=== PATIENT | male | born 1995 | race Caucasian/White ===

== ENCOUNTER 2024-09-14 19:37 | Emergency (ER) | payer OTHER, SELFPAY ==
[2024-09-14 19:51] VITALS: BP 151/90
[2024-09-14 20:10] LABS: % Basophils 0.5 % (0-2); % Eosinophils 2.8 % (0-6); % Immature Granulocytes 0.4 % (0-0.5); % Lymphocytes 23.7 % (20.5-51.1); % Monocytes 8.3 % (1.7-9.3); % Neutrophils 64.3 % (42.2-75.2); Absolute Basophils 0.1 10^3/uL (0-0.2); Absolute Eosinophils 0.3 10^3/uL (0-0.7); Absolute Lymphocytes 2.3 10^3/uL (1.2-3.4); Absolute Monocytes 0.8 10^3/uL (0.1-0.6); Absolute Neutrophils 6.3 10^3/uL (1.4-6.5); Hematocrit 43.3 % (39.0-52.0); Hemoglobin 14.1 g/dL (13.0-18.0); Mean Corp Hgb Conc. 32.6 g/dL (33.0-37.0); Mean Corpuscular Hgb 29.3 pg (27.0-31.0); Mean Platelet Volume 10.9 fL (7.4-10.4); Nucleated Red Blood Cells % 0 % (-); Platelet Count 232 10^3/uL (130-400); Red Blood Cell Count 4.81 10^6/uL (4.70-6.10); Red Cell Dist. Width 12.2 % (11.5-14.5); White Blood Cell Count 9.7 10^3/uL (4.8-10.8)
[2024-09-14 20:34] LABS: ALT (SGPT) 33 U/L (0-50); AST (SGOT) 23 U/L (17-59); Albumin 4.7 g/dl (3.5-5.0); Alkaline Phosphatase 51 U/L (38-126); Blood Urea Nitrogen 22 mg/dl (9-20); Calcium 9.5 mg/dl (8.4-10.2); Carbon Dioxide 26 mmol/L (22-30); Chloride 102 mmol/L (98-107); Glucose 90 mg/dl (70-99); Potassium 4.4 mmol/L (3.5-5.1); Sodium 139 mmol/L (135-145); Total Bilirubin 0.2 mg/dl (0.2-1.3); Total Protein 7.3 g/dl (6.3-8.2); eGFR > 60.00
[2024-09-14 20:37] LABS: Troponin I < 0.012 ng/ml
--- NOTE | 2024-09-14 21:01 | ED.GENMED ---
History of Present Illness
General
Chief Complaint: Chest Pain
Time Seen by Provider: 09/14/24 20:52
History of Present Illness
History of Present Illness:
29-year-old male no past medical history presenting with pleuritic substernal chest pain described as sharp nonradiating pain lasting for few seconds and then fleeting intermittently for the past 2 weeks. Denies any recent fever, chills, cough, or
shortness of breath. Unrelated to food. Patient denies any recent heavy lifting, falls or trauma. Patient reports history of pleurisy as a child states that this feels similar. Patient denies taking medication for symptoms. Pt states he was able
to reproduce chest pain with palpation earlier today, but not now.
Phy Exam
Physical Exam
Physical Exam:
General: Alert, no acute distress
Head: NCAT
Eyes: clear conjunctiva
Neck: supple
Chest: No reproducible chest wall tenderness to palpation. No overlying rash
Cardiac: regular rate and rhythm, no murmur
Lungs: clear to auscultation bilaterally. No wheezes, rales, or rhonchi. Speaking full unlabored sentences. No respiratory distress.
Abdomen: soft, nondistended nontender. No rebound or guarding.
MSK: no lower extremity edema bilaterally. No deformity
Skin: warm, dry
Neuro: Alert and oriented x3. no focal deficits
Scores
Heart Score for Chest Pain Patients
STEMI patient?: No
History: Slightly or Non-Suspicious
ECG: Normal
Age: </= 45 years
Risk Factors: No Risk Factors
Troponin: </= Normal Limit
Heart Score for Chest Pain Patients: 0
Heart Score Risk: 2.5% MACE over next 6 weeks
PERC Rule Criteria
Age <50 years: Yes
HR <100 bpm: Yes
Room air oxygen sat >94%: Yes
History of DVT or PE: No
Recent trauma or surgery: No
Hemoptysis: No
Exogenous estrogen: No
Clinical signs suggestive of DVT: No
: No
Considered low risk for PE: Yes
PERC Score: 0
PE can be excluded by PERC: Yes
Course
Orders/Labs/Results
Orders:
Orders
09/14/24 19:38
Electrocardiogram (*1) Urgent
Reason for Study: Chest Pain
EKG- Treatment ONCE
09/14/24 19:59
Complete Blood Count/With Diff Urgent
Comprehensive Metabolic Panel Urgent
Troponin I Urgent
09/14/24 21:00
CXR2 [CR Chest - 2 Views ] Urgent
Comment:
Reason For Exam: chest pain
Abnormal Lab Results
09/14/24
19:59
MCHC 32.6 L g/dL
(33.0-37.0)
MPV 10.9 H fL
(7.4-10.4)
Absolute Monos (auto) 0.8 H 10^3/uL
(0.1-0.6)
BUN 22 H mg/dl
(9-20)
09/14/24 19:59
09/14/24 19:59
Vital Signs
Initial and Last Documented VS:
Initial Vital Signs
Temp Pulse Resp BP Pulse Ox
97.8 F 86 18 151/90 98
09/14/24 19:51 09/14/24 19:51 09/14/24 19:51 09/14/24 19:51 09/14/24 19:51
Last Documented Vital Signs
Temp Pulse Resp BP Pulse Ox
97.8 F 89 15 126/84 96
09/14/24 19:51 09/14/24 22:17 09/14/24 22:17 09/14/24 22:17 09/14/24 22:17
MDM/Problems Addressed
Differential Diagnosis Includes:
Musculoskeletal pain, pleurisy, pneumothorax. Low suspicion for PE given PERC negative. No risk factors for CAD, low suspicion
MDM/Problems Addressed:
Chest x-ray clear with no focal infiltrate, no consolidation, no pneumothorax, no cardiomegaly. Labs reviewed. White count within normal limits. Hemoglobin within normal limits. Electrolytes within normal limits. Troponin within normal limits.
Given symptoms been going on for 2 weeks, no cardiac risk factors, was previously reproducible, low suspicion for CAD. Discussed results with patient at bedside. Hemodynamically stable. Advised to take ibuprofen 800 mg every 8 hours for the next
3 days and then as needed for pain. Advised follow-up with primary care doctor. Patient expressed verbal understanding.
*Critical Care Note
Total Time (30-74mins, 75-104mins- exclusive of procedures): Not Applicable
ED Attending Note
-
Portions of this chart may have been created with voice recognition software.� Occasional wrong word or��sound alike� substitutions may have occurred due to the inherent limitations of voice recognition software.
Discharge Plan
Departure
Patient Disposition: Home (Routine Discharge)
Date of Disposition: 09/14/24
Time of Disposition: 23:41
Patient with high blood pressure during this ER visit?: Yes
Discharge Problem:
Chest pain
Instructions: Chest Pain PCP Follow Up, BLOOD PRESSURE
Referrals:
Mark Berger, [Family Provider] -
Activity Restrictions/Additional Instructions:
Follow-up with your primary care doctor in 2 to 3 days
Take ibuprofen 800 mg every 8 hours for 3 days. Then you may take it as needed for pain
Return to the emergency department for shortness of breath, chest pain that lasts more than 20 minutes or new/worsening symptoms
Interventions
Interventions:
*Risk Screen - Suicide Last Done: 09/14/24 19:51
*General Assessment Last Done: 09/14/24 19:51
*Neglect/Abuse Screening Last Done: 09/14/24 19:51
*ED COVID-19 Vaccine History Last Done: 09/14/24 19:51
ED- Cardiac Assessment Last Done: 09/14/24 22:43
Discharge Date and Time
Print Language: [id number]
[2024-09-14 22:17] VITALS: BP 126/84
== END 2024-09-14 23:58 | disposition home or self-care (01) ==
LOC: EMR 19:37
PROVIDERS: Emergency Medicine; EMERGENCY PHYSICIAN Emergency Medicine; FAMILY PHYSICIAN Family Medicine
DX: R07.89 Other chest pain (principal)
CPT/HCPCS: 99283; 71046; 80053; 84484; 85025; 93005